=== PATIENT | female | born 1970 | race Caucasian/White ===

== ENCOUNTER → 2021-11-22 16:05 | Outpatient (CLI) | payer OTHER, SELFPAY ==
--- NOTE | ~2021-11-22 | MM_ITS ---
EXAMINATION: MM screening neida BI w gunjan HISTORY: Screening mammogram TECHNIQUE: Craniocaudal and mediolateral oblique 3-D tomosynthesis images were obtained and synthetic 2-D images were generated. CAD analysis was submitted and interpreted. COMPARISON: None, baseline BREAST PARENCHYMAL COMPOSITION: There are scattered areas of fibroglandular density. FINDINGS: RIGHT BREAST: There are masses in the middle third of the outer and upper outer quadrant of the breas t. Focal asymmetry is present in the posterior third of the lower breast. LEFT BREAST: No suspicious mass, calcification, or architectural distortion are identified to suggest malignancy. IMPRESSION: 1. Right breast findings as described above. 2. Additional mammographic views and possible breast ultrasound are recommended. BI-RADS Category 0: Incomplete: Needs additional imaging evaluation. Reviewed, dictated and finalized at location A. IMPRESSION: 1. Right breast findings as described above. 2. Additional mammographic views and possible breast ultrasound are recommended . BI-RADS Category 0: Incomplete: Needs additional imaging evaluation.
== END ==
PROVIDERS: PCP Family Medicine; Visit Provider Family Medicine
DX: Z12.31 Encounter for screening mammogram for malignant neoplasm of breast (principal); R92.8 Other abnormal and inconclusive findings on diagnostic imaging of breast
CPT/HCPCS: 77063; 77067

== ENCOUNTER → 2021-12-08 07:50 | Outpatient (CLI) | payer OTHER, SELFPAY ==
--- NOTE | ~2021-12-08 | MMUS_ITS ---
EXAMINATION: MM diagnostic neida RT w gunjan, US breast RT complete HISTORY: Follow-up right breast masses and asymmetries. TECHNIQUE: Additional 3-D tomosynthesis images of the right breast were performed and synthetic 2-D i mages were generated. CAD analysis was submitted and interpreted. High resolution complete right naomi st ultrasound was performed. COMPARISON: Comparison to multiple prior studies sequentially, with oldest reviewed study dated 05/2021. 11/22/2021 BREAST PARENCHYMAL COMPOSITION: Breast composed of scattered areas of fibroglandular density FINDINGS: MAMMOGRAPHIC FINDINGS: There are persistent circumscribed radiolucent masses in the lower outer quadrant of the right breast in the upper outer quadrant of the right breast. Persistent asymmetries are present in the lower dorina tral aspect of the right breast. ULTRASOUND: Complete right breast US of all 4 quadrants of the breasts and retroareolar region was reviewed. At 7 :00, 7 cm from the nipple, there is an intramammary lymph node measuring 8 mm. At 10:00, 10 cm from t he nipple there is an oval hypoechoic mass with circumscribed margins, parallel orientation, no poste rior features and no internal vascularity measuring 7 mm, likely benign. IMPRESSION: 1. Probable benign right breast mass at 7 and 10:00 positions, likely corresponding to the mammograph ic findings. 2. Recommend 6 month follow-up diagnostic right mammogram and ultrasound BI-RADS category 3, probably benign findings. Reviewed, dictated and finalized at location A. IMPRESSION: 1. Probable benign right breast mass at 7 and 10:00 positions, likely correspon ding to the mammographic findings. 2. Recommend 6 month follow-up diagnostic right mammogram and ultrasound BI-RADS category 3, probably benign findings.
== END ==
PROVIDERS: PCP Family Medicine; Visit Provider Family Medicine
DX: R92.8 Other abnormal and inconclusive findings on diagnostic imaging of breast (principal)
CPT/HCPCS: 76641; 77061; 77065; G0279

== ENCOUNTER → 2022-06-21 09:19 | Outpatient (CLI) | payer OTHER, SELFPAY ==
--- NOTE | ~2022-06-21 | MMUS_ITS ---
EXAMINATION: MM diagnostic neida RT w gunjan, US breast RT limited HISTORY: Six-month follow-up for probably benign right breast masses TECHNIQUE: Craniocaudal, mediolateral, and mediolateral oblique 3-D tomosynthesis images of the right breast were performed and synthetic 2-D images were generated. CAD analysis was submitted and interp reted. High resolution limited right breast ultrasound was performed. COMPARISON: 12/08/2021, 11/22/2021 BREAST PARENCHYMAL COMPOSITION: There are scattered areas of fibroglandular density. FINDINGS: MAMMOGRAPHIC FINDINGS: A 9 mm oval, circumscribed, equal density mass at the 7:00 location, 6 cm from the nipple in the midd le third of the outer breast is not significantly changed in size. Also seen is a stable 7 mm mass wi th similar mammographic features in the middle third of the upper-outer quadrant of the breast at the 10:00 location, 10 cm from the nipple. There is persistent focal asymmetry in the middle third of th e lower breast at the 6:00 location 12 cm from the nipple which appears to have increased since the c omparison mammograms. ULTRASOUND: A stable intramammary lymph node is noted at the 7:00 location, 5 cm from the nipple. A stable mass a t the 10:00 location 8 cm from the nipple has sonographic features suggestive of an intramammary lymp h node as well. There is ill-defined, dense shadowing in the lower breast at the 6:00 to 8:00 locatio n corresponding to the increasing right breast focal asymmetry. IMPRESSION: 1. Increasing focal asymmetry of the lower right breast with ill-defined, dense shadowing sonographic ally. 2. Ultrasound-guided biopsy is recommended. BI-RADS category 4, suspicious findings. Reviewed, dictated and finalized at location A. IMPRESSION: 1. Increasing focal asymmetry of the lower right breast with ill-defined, dense shadowing sonographically. 2. Ultrasound-guided biopsy is recommended. BI-RADS category 4, suspicious findings.
== END ==
PROVIDERS: PCP Family Medicine; Visit Provider Family Medicine
DX: R92.8 Other abnormal and inconclusive findings on diagnostic imaging of breast (principal)
CPT/HCPCS: 76642; 77061; 77065; G0279

== ENCOUNTER 2022-07-12 09:54 | Outpatient (CLI) | payer OTHER, SELFPAY ==
--- NOTE | ~2022-07-12 | MMUS_ITS ---
EXAMINATION: US breast biopsy RT w image, MM post biopsy invasive RT DATE: 07/12/2022 11:50 (accession [id number]), 07/12/2022 11:48 (accession [id number]) INDICATION: Indeterminate focal asymmetry of the lower right breast on screening mammogram. Ultrasoun d-guided core biopsy is requested to evaluate for malignancy. TECHNIQUE AND FINDINGS: The risks and potential benefits of the procedure were discussed with the patient including bleeding and infection. A time out was performed. The skin of the right breast was prepared and draped in usua l sterile fashion. 1% lidocaine was used for superficial anesthesia. 1% lidocaine with epinephrine wa s used for deep anesthesia. A vacuum-assisted biopsy needle was advanced through to the outer edge of the region of interest from a medial approach utilizing sonographic guidance. A total of five tissue core samples were obtained through the lesion. A tissue marker clip was then placed at the biopsy site. Hemostasis was achieved. A sterile bandage was applied. The patient tolerated procedure well and there was no evidence of immediate complication. The patient was given verbal instructions to return to the Emergency Department in the event of severe breast pa in or rapid breast enlargement. A two view right breast mammogram was obtained to document tissue mar ker clip placement. IMPRESSION: 1. Successful ultrasound-guided vacuum-assisted biopsy of right breast mass with tissue marker placem ent. Reviewed, dictated and finalized at location A. IMPRESSION: 1. Successful ultrasound-guided vacuum-assisted biopsy of right breast mass wit h tissue marker placement.
== END 2022-07-12 09:55 | disposition home or self-care (01) ==
PROVIDERS: PCP Family Medicine; Visit Provider Family Medicine
DX: R92.8 Other abnormal and inconclusive findings on diagnostic imaging of breast (principal)
CPT/HCPCS: 19083; 88305; 88342; A4648

== ENCOUNTER → 2022-11-24 13:35 | Outpatient (CLI) | payer OTHER, SELFPAY ==
--- NOTE | ~2022-11-24 | MM_ITS ---
EXAMINATION: MM screening neida BI w gunjan HISTORY: Screening mammogram TECHNIQUE: Craniocaudal and mediolateral oblique 3-D tomosynthesis images were obtained and synthetic 2-D images were generated. CAD analysis was submitted and interpreted. COMPARISON: 07/12/2022, 06/21/2022, 12/08/2021, 11/22/2021 BREAST PARENCHYMAL COMPOSITION: There are scattered areas of fibroglandular density. FINDINGS: There is a stable focal asymmetry in the lower inner quadrant of the right breast with inte rval biopsy change. No suspicious mass, calcification, or architectural distortion are identified in either breast to suggest malignancy. There has been no suspicious interval change. IMPRESSION: 1. Stable focal asymmetry of the right breast with interval biopsy change. 2. Recommend routine screening mammography in one year. Consider targeted right breast ultrasound to evaluate the area of biopsy change. BI-RADS Category 2: Benign finding(s). Reviewed, dictated and finalized at location A.
== END ==
PROVIDERS: PCP Family Medicine; Visit Provider Family Medicine
DX: Z12.31 Encounter for screening mammogram for malignant neoplasm of breast (principal)
CPT/HCPCS: 77063; 77067

== ENCOUNTER 2023-11-28 16:24 | Outpatient (CLI) | payer OTHER, SELFPAY ==
[2023-11-28 18:36] LABS: Hemoglobin 13.1 g/dL (12.0-15.0); Mean Corpuscular Hemoglobin 28.4 pg (26-34); Mean Corpuscular Volume 88.7 fl (80-100); Mean Platelet Volume 11.1 fl (7.4-10.4); Platelet Count Result 181 k/mm3 (150-375); Red Blood Count 4.62 M/mm3 (4.2-5.4); Red Cell Distribution Width 15.4 % (11.5-14.5); White Blood Count 7.3 K/mm3 (4.5-10.0)
[2023-11-28 19:00] LABS: Creatinine Urine 55.3 mg/dL
[2023-11-28 19:04] LABS: MALB Creatinine Ratio 65.1 mg/g (0-30)
[2023-11-28 20:12] LABS: Alanine Aminotransferase 30 U/L (6-35); Albumin Level 4.6 g/dL (3.5-5.1); Alkaline Phosphatase 56 U/L (38-126); Anion Gap 13 mmol/L (4-12); Aspartate Amino Transferase 37 U/L (14-36); Bilirubin,Total 0.4 mg/dL (0.2-1.3); Blood Urea Nitrogen 24 mg/dL (7-17); Carbon Dioxide 23 mmol/L (22-30); Chloride 101 mmol/L (98-107); Cholesterol 129 mg/dL (0-200); Estimated Glomerular Filt Rate 58; Glucose 212 mg/dL (65-110); HDL Direct 25 mg/dL; Potassium 4.3 mmol/L (3.4-5.0); Sodium 137 mmol/L (137-145); Triglycerides 404 mg/dL (<150)
[2023-11-28 20:23] LABS: LDL Cholesterol Direct 49 mg/dL
[2023-11-28 21:02] LABS: Hemoglobin A1C 7.6 % (<5.7)
== END 2023-11-28 16:25 | disposition home or self-care (01) ==
LOC: ANHBWCLAB 16:25
PROVIDERS: PCP Nurse Practitioner Adult Health; Visit Provider Nurse Practitioner Adult Health
DX: E11.9 Type 2 diabetes mellitus without complications (principal); Z13.9 Encounter for screening, unspecified; Z51.81 Encounter for therapeutic drug level monitoring
CPT/HCPCS: 36415; 80053; 80061; 82043; 82607; 83036; 84443; 85027

== ENCOUNTER 2023-12-01 09:46 | Outpatient (CLI) | payer OTHER, SELFPAY ==
--- NOTE | ~2023-12-01 | MM_ITS ---
EXAMINATION: MM screening neida BI w gunjan HISTORY: Screening TECHNIQUE: Craniocaudal and mediolateral oblique 3-D tomosynthesis images were obtained and synthetic 2-D images were generated. CAD analysis was submitted and interpreted. COMPARISON: Comparison to multiple prior studies sequentially, with oldest reviewed study dated 05/2021. BREAST PARENCHYMAL COMPOSITION: Not dense: There are scattered areas of fibroglandular density. FINDINGS: Breast asymmetries are stable bilaterally. There is no evidence of suspicious mass, calcifi cation, or architectural distortion to suggest malignancy in either breast. There has been no suspici ous interval change. IMPRESSION: 1. No mammographic evidence of malignancy. 2. Recommend routine screening mammography in one year. BI-RADS Category 1: Negative Reviewed, dictated and finalized at location B.
== END 2023-12-01 09:47 | disposition home or self-care (01) ==
PROVIDERS: PCP Nurse Practitioner Adult Health; Visit Provider Nurse Practitioner Adult Health
DX: Z12.31 Encounter for screening mammogram for malignant neoplasm of breast (principal)
CPT/HCPCS: 77063; 77067

== ENCOUNTER 2024-04-02 09:37 | Outpatient (CLI) | payer OTHER, SELFPAY ==
--- OUTSIDE RECORDS SUMMARY | 2024-04-02 10:35 | XMS_ITS | Referral Summary ---
Author Organization [facility] al Address [address] [place] [address] Care Team Providers Care Book Trimmer Name Role Phone Zuleika Joseph MD Primary Care Provider + Allergies No known active allergies Active Problems Problem Noted Date Diagnosed Date Nocturnal oxygen desaturation 01/02/2022 Severe sepsis 12/29/2021 Social History Tobacco Use Types Packs/Day Years Used Date Smoking Tobacco: Never Smokeless Tobacco: Never Tobacco Cessation:Counseling Given: Not Answered Personal Safety Answer Date Recorded Getting School Help Needed Not on file 05/05 Comments Unknown Sex and Gender Information Value Date Recorded Sex Assigned at Not on file Legal Sex Female 6:37 PM JANITOR Gender Identity Not on file Sexual Orientation Not on file Last Filed Vital Signs Vital Sign Reading Time Taken Comments Blood Pressure 132/67 01/02/2022 8:45 AM JANITOR Pulse 81 01/02/2022 12:05 PM JANITOR Temperature 36.6 C (97.9 F) 01/02/2022 8:45 AM JANITOR Respiratory Rate 18 01/02/2022 6:00 AM JANITOR Oxygen Saturation 93% 01/02/2022 12:05 PM JANITOR Inhaled Oxygen Concentration - - Weight 152 kg (335 lb 1.6 oz) 12/29/2021 3:18 PM JANITOR Height 170.2 cm (5' 7.01 ) 12/29/2021 3:18 PM CS T Body Mass Index 52.47 12/29/2021 3:18 PM JANITOR Plan of Treatment Not on file Insurance [facility] [employer] Advance Directives For more information, please contact: [phone] * Full Code (Latest Code Status on File) Date Activated Date Inactivated Comments 12/29/2021 5:17 AM 01/02/2022 9:25 PM Care Teams Book Trimmer Relationship Specialty Start Date End Date Zuleika Joseph MD [address] [place] [address] [id number] PCP - General Family Medicine 12/28/21
--- OUTSIDE RECORDS SUMMARY | 2024-04-02 10:35 | XMS_ITS | Clinical Summary ---
Author Organization [facility] al Address [address] [place] [address] Care Team Providers Care Storage Battery Inspector And Tester Name Role Phone Zuleika Joseph MD Primary [...] on file Legal Sex Female 6:37 PM CHASSIS DRIVER Gender Identity Not on file Sexual Orientation Not on file Obstetrics History Last Filed Vital Signs Vital Sign Reading Time Taken Comments Blood Pressure 132/67 01/02/2022 8:45 AM CHASSIS DRIVER Pulse 81 01/02/2022 12:05 PM CHASSIS DRIVER Temperature 36.6 C (97.9 F) 01/02/2022 8:45 AM CHASSIS DRIVER Respiratory Rate 18 01/02/2022 6:00 AM CHASSIS DRIVER Oxygen Saturation 93% 01/02/2022 12:05 PM CHASSIS DRIVER Inhaled Oxygen Concentration - - Weight 152 kg (335 lb 1.6 oz) 12/29/2021 3:18 PM CHASSIS DRIVER Height 170.2 cm (5' 7.01 ) 12/29/2021 3:18 PM CS T Body Mass Index 52.47 12/29/2021 3:18 PM CHASSIS DRIVER Plan of Treatment Health Maintenance Due Date Last Done Comments Breast Cancer Screening-Mammogram 1969 Cervical Cancer Screening 1969 Colon Cancer Screening-Colonoscopy 1969 Depression Screening 1969 Hepatitis C Screening 1969 DTaP/Tdap/Td Vaccine (1 - Tdap) 1980 Hepatitis B Screening 12/29/1987 Regular Well Visit/Exam 18-64 12/29/1987 Zoster Vaccine (1 of 2) 12/29/2019 Covid-19 Vaccine (4 - 2023-2 5 season) 2023 02/26/2021, 06/09/2020, 05/12/2020 Influenza Vaccine (#1) 2023 Pneumococcal vaccine <65 Aged Out No longer eligible based on patient's age to complete this topic Insurance [facility] PLUS [place] [id number] [facility] [employer] [employer] [place] [id number] Advance Directives For more information, please contact: [phone] * Full Code (Latest Code Status on File) Date Activated Date Inactivated Comments 12/29/2021 5:17 AM 01/02/2022 9:25 PM Care Teams Storage Battery Inspector And Tester Relationship Specialty Start Date End Date Zuleika Joseph MD [address] [place] [address] [place] [id number] PCP - General Family Medicine 12/28/21
[2024-04-02 18:30] LABS: Alanine Aminotransferase 37 U/L (6-35); Albumin Level 4.6 g/dL (3.5-5.1); Alkaline Phosphatase 63 U/L (38-126); Anion Gap 16 mmol/L (4-12); Aspartate Amino Transferase 39 U/L (14-36); Bilirubin,Total 0.6 mg/dL (0.2-1.3); Blood Urea Nitrogen 25 mg/dL (7-17); Calcium 11.1 mg/dL (8.4-10.2); Carbon Dioxide 22 mmol/L (22-30); Chloride 100 mmol/L (98-107); Cholesterol 133 mg/dL (0-200); Estimated Glomerular Filt Rate 58; Glucose 189 mg/dL (65-110); HDL Direct 26 mg/dL; Magnesium 1.7 mg/dL (1.6-2.3); Potassium 4.9 mmol/L (3.4-5.0); Sodium 138 mmol/L (137-145); Triglycerides 455 mg/dL (<150)
[2024-04-02 18:42] LABS: LDL Cholesterol Direct 53 mg/dL
[2024-04-02 18:55] LABS: Creatinine Urine 72.3 mg/dL
[2024-04-02 19:01] LABS: Microalbumin Urine Random 54.2 mg/L (0-16.7)
== END 2024-04-02 09:38 | disposition home or self-care (01) ==
LOC: ANHBWCLAB 09:39
PROVIDERS: PCP Nurse Practitioner Adult Health; Visit Provider Nurse Practitioner Adult Health
DX: E11.9 Type 2 diabetes mellitus without complications (principal); E55.9 Vitamin D deficiency, unspecified; K21.9 Gastro-esophageal reflux disease without esophagitis; I10 Essential (primary) hypertension
CPT/HCPCS: 36415; 80053; 80061; 82043; 82306; 82565; 82607; 83036; 83735

== ENCOUNTER 2024-12-10 12:43 | Outpatient (CLI) | payer OTHER, SELFPAY ==
--- NOTE | ~2024-12-10 | MM_ITS ---
EXAMINATION: MM screening [facility] [place] w gunjan HISTORY: Screening TECHNIQUE: Craniocaudal and mediolateral oblique 3-D tomosynthesis images were obtained and synthetic 2-D images were generated. CAD analysis was submitted and interpreted. COMPARISON: Comparison to multiple prior studies sequentially, with oldest reviewed study dated 11/22/2021. BREAST PARENCHYMAL COMPOSITION: Not dense: There are scattered areas of fibroglandular density. FINDINGS: There is no evidence of suspicious mass, calcification, or architectural distortion to suggest malignancy in either breast. There has been no suspicious interval change. IMPRESSION: 1. No mammographic evidence of malignancy. 2. Recommend routine screening mammography in one year. BI-RADS Category 1: Negative Reviewed, dictated and finalized at location O.
== END 2024-12-10 12:44 | disposition home or self-care (01) ==
LOC: MICIMG 12:44
PROVIDERS: PCP Nurse Practitioner Adult Health; Visit Provider Nurse Practitioner Adult Health
DX: Z12.31 Encounter for screening mammogram for malignant neoplasm of breast (principal)
CPT/HCPCS: 77063; 77067